=== PATIENT | male | born 1975 | race African-American/Black ===

== ENCOUNTER 2025-09-28 12:26 | Emergency (ER) | payer MEDICAID ==
[~2025-09-28] VITALS: Ht 172.7 cm; Wt 65.0 kg
[2025-09-28 12:41] VITALS: TEMP 98.1
[2025-09-28 13:02] LABS: Nucleated Red Blood Cells % 0.2 %
[2025-09-28 13:04] LABS: Hematocrit 49.1 % (41.0-53.0); Hemoglobin 16.3 g/dL (13.5-17.5); Mean Corpuscular Hemoglobin 26.2 pg (28.0-32.0); Mean Corpuscular Volume 78.7 fL (80.0-100.0)
[2025-09-28 13:12] LABS: Potassium 4.2 mmol/L (3.5-5.1)
[2025-09-28 13:13] LABS: Calcium 9.6 mg/dL (8.7-10.4); Carbon Dioxide 23 mmol/L (20-31); Sodium 136 mmol/L (136-145)
[2025-09-28 13:18] LABS: BUN/Creatinine Ratio 10.8 (10.0-20.0); Glucose 80 mg/dL (74-106)
[2025-09-28 13:19] LABS: Blood Urea Nitrogen 9 mg/dL (9-23)
--- NOTE | 2025-09-28 13:21 | ED.PDOC ---
HPI (NEURO) HPI Comments 50y M who presents to the ED via EMS for chief complaint of dizziness. Pt states earlier this AM, he was getting to car and states he felt dizziness, weakness and states he was going to pass out. Pt states he was able to go back inside his home and states he started to have episodes of cough with associated productive thick mucus with associated nausea with associated vomiting episodes and called EMS. EMS arrived on scene and pt otherwise had stable vitals. Pt in the ED, states he does have sick contacts at home. Pt in the ED, denies shortness of breath, chest pain or any other symptoms. Pt in the ED, otherwise has stable vitals. Chief Complaint: Dizziness Time Seen by MD: 13:18 Reviewed Notes: Nurses Notes, Medications, Allergies Information Source: Patient, Emergency Med Personnel Mode of Arrival: EMS Brought in by: EMS Severity: Moderate Dizziness/Weakness Severity: Does not affect activitie Headache Severity: None Timing: Hours Duration: Since onset Prehospital treatment: None Onset: At rest Circumstances: Spontaneous Symptoms: Near syncope, Weakness History of: MO Modifying factors: Nothing Associated Signs and Symptoms: Nausea, Vomiting, Nasal Congestion Past Medical History PAST MEDICAL HISTORY: MO Past Medical History (Other): blood clot in groin Surgical History: Denies all surgeries Family History Family History: Reviewed,noncontributory to illness Social History Smoker: Non-Smoker Alcohol: Occasionally Drugs: Marijuana Lives In: Home Constitutional: reports: weakness; denies: chills, diaphoresis, fatigue, fever, malaise, sweats, others EENTM: reports: nose congestion; denies: blurred vision, double vision, ear bleeding, ear discharge, ear drainage, ear pain, ear ringing, eye pain, eye redness, hearing loss, mouth pain, mouth swelling, nasal discharge, nose bleeding, nose pain, photophobia, tearing, throat pain, throat swelling, voice changes, others Respiratory: denies: cough, hemoptysis, orthopnea, SOB at rest, shortness of breath, SOB with excertion, stridor, wheezing, others Cardiovascular: denies: chest pain, dizzy spells, diaphoresis, Dyspnea on exertion, edema, irregular heart beat, left arm pain, lightheadedness, palpitations, PND, syncope, others Gastrointestinal: reports: nausea, vomiting; denies: abdomen distended, abdominal pain, blood streaked bowels, constipated, diarrhea, dysphagia, difficulty swallowing, hematemesis, melena, poor appetite, poor fluid intake, rectal bleeding, rectal pain, others Genitourinary: denies: burning, dysuria, flank pain, frequency, hematuria, incontinence, penile discharge, penile sore, pain, testicle pain, testicle swelling, urgency, others Neurological: denies: dizziness, fainting, headache, left sided numbness, left sided weakness, numbness, paresthesia, pre-existing deficit, right sided numbness, right sided weakness, seizure, speech problems, tingling, tremors, weakness, others Musculoskeletal: denies: back pain, gout, joint pain, joint swelling, muscle pain, muscle stiffness, neck pain, others Integumetry: denies: bruises, change in color, change in hair/nails, dryness, laceration, lesions, lumps, rash, wounds, others Allergic/Immunocompromised: denies: Difficulty Healing, Frequent Infections, Hives, Itching, others Hematologic/Lymphatic: denies: anemia, blood clots, easy bleeding, easy bruising, swollen glands, others Endocrine: denies: excessive hunger, excessive sweating, excessive thirst, excessive urination, flushing, intolerance to cold, intolerance to heat, unexplained weight gain, unexplained weight loss, others Psychiatric: denies: anxiety, bipolar disorder, depression, hopeless, panic disorder, schizophrenia, sleepless, suicidal, others All Other Systems: Reviewed and Negative Physical Exam General Appearance: No Apparent Distress HEENT: Normal ENT Inspection, Pharynx Normal, TMs Normal Neck: Full Range of Motion, Non-Tender, Normal, Normal Inspection Respiratory: Chest Non-Tender, Lungs Clear, No Accessory Muscle Use, No Respiratory Distress, Normal Breath Sounds Cardiovascular: No Edema, No JVD, No Murmur, No Gallop, Normal Peripheral Pulses, Regular Rate/Rhythm Breast Exam: Deferred Gastrointestinal: No Organomegaly, Non Tender, No Pulsatile Mass, Normal Bowel Sounds, Soft Genitalia: Deferred Pelvic: Deferred Rectal: Deferred Extremities: No calf tenderness, Normal capillary refill, Normal inspection, Normal range of motion, Non-tender, No pedal edema Musculoskeletal : Apperance: Normal Neurologic: Alert, nitroglycerin supervisor II-XII nml as Tested, No Motor Deficits, Normal Affect, Normal Mood, No Sensory Deficits Cerebellar Function: Normal Reflexes: Normal Skin: Dry, Normal Color, Warm Lymphatic: No Adenopathy EKG EKG : Pulse Rate (adult): 84 [place]: Normal Cardiac Rhythm: NSR Block: None Hypertrophy: None ST: Normal Was a procedure done? Was a procedure done?: No Differential Diagnosis (SZ) Seizure: N/A General Weakness: Anemia, Dehydration, Electrolyte imbalance, Other (UTI, COVID, Influenza A and B, URI, viral syndrome ) X-Ray, Labs, Meds, VS Vital Signs Date Time Temp Pulse Resp B/P (MAP) Pulse Ox O2 Delivery O2 Flow Rate FiO2 09/28/25 15:42 91 17 159/99 (119) 99 09/28/25 15:42 91 17 99 Room Air 09/28/25 13:21 84 09/28/25 12:41 98.1 97 16 152/97 99 98.1 09/28/25 12:32 84 Lab Test 09/28/25 15:41 09/28/25 12:48 Range/Units Urine Color Light-yellow Yellow Urine Clarity Clear Clear Urine pH 5.5 5.0-9.0 Urine Specific [place] 1.022 1.001-1.035 Urine Protein Negative Negative Urine Ketones 2+ H Negative Urine Blood Negative Negative /uL Urine Nitrite Negative Negative Urine Bilirubin Negative Negative Urine Urobilinogen Normal Negative mg/dL Urine Leukocyte Esterase Negative Negative /uL Urine RBC <1 0 - 3 /hpf Urine Microscopic WBC < 1 0-3 /HPF Urine Squamous Epithelial Cells None seen <5 /hpf Urine Bacteria None seen None Seen /hpf Urine Hyaline Casts Few 0 - 2 /lpf Urine Mucus Few None Seen Urine Glucose Normal Normal mg/dL White Blood Count 7.9 4.4-10.8 10^3/uL Red Blood Count 6.24 H 4.5-5.90 10^6/uL Hemoglobin 16.3 13.5-17.5 g/dL Hematocrit 49.1 41.0-53.0 % Mean Corpuscular Volume 78.7 L 80.0-100.0 fL Mean Corpuscular Hemoglobin 26.2 L 28.0-32.0 pg Mean Corpuscular Hemoglobin Concent 33.3 32.0-36.0 g/dL Red Cell Distribution Width 16.2 H 11.8-14.3 % Platelet Count 333 140-450 10^3/uL Mean Platelet Volume 7.1 6.9-10.8 fL Neutrophils (%) (Auto) 61.0 37.0-80.0 % Lymphocytes (%) (Auto) 25.2 10.0-50.0 % Monocytes (%) (Auto) 11.3 0.0-12.0 % Eosinophils (%) (Auto) 0.9 0.0-7.0 % Basophils (%) (Auto) 1.6 0.0-2.0 % Neutrophils # (Auto) 4.8 1.6-8.6 10 ^3/uL Lymphocytes # (Auto) 2.0 0.4-5.4 10 ^3/uL Monocytes # (Auto) 0.9 0-1.3 10 ^3/uL Eosinophils # (Auto) 0.1 0-0.8 10 ^3/uL Basophils # (Auto) 0.1 0-0.2 10 ^3/uL Nucleated Red Blood Cells 0.2 % Sodium Level 136 136-145 mmol/L Potassium Level 4.2 3.5-5.1 mmol/L Chloride Level 105 98-107 mmol/L Carbon Dioxide Level 23 20-31 mmol/L Anion Gap 8 5-15 Blood Urea Nitrogen 9 9-23 mg/dL Creatinine 0.83 0.700-1.30 mg/dL Glomerular Filtration Rate Calc 107 >90 mL/min BUN/Creatinine Ratio 10.8 10.0-20.0 Serum Glucose 80 74-106 mg/dL Calcium Level 9.6 8.7-10.4 mg/dL PROCEDURE(s): HWOCT - HEAD WITHOUT CONTRAST IMPRESSION: 1. No acute intracranial process. 2. Mild bilateral maxillary sinus disease. 3. Fluid and sclerosis of the right mastoid air cells is suggestive of chronic mastoiditis. The patient's CBC is within normal limits The chemistry panel is within normal limits The urine test is negative for any infection The patient is being discharged The patient is able to ambulate without any difficulty The patient will follow up with the primary care doctor Images Reviewed?: Images reviewed and evaluated by me Time of 1ST Reevaluation: 13:50 Reevaluation 1ST: Unchanged Patient Education/Counseling: Diagnosis, Treatment, Prognosis Family Education/Counseling: No Family Present Departure 1 Departure Time of Disposition: 16:25 Impression: Primary Impression: Dizziness Additional Impression: Viral syndrome Disposition: 01 HOME / SELF CARE / HOMELESS Condition: Fair Discharged With: Self Critical Care Note Critical Care Time?: No Stability Stability form required: No Heart Score Heart Score: Heart Score Response (Comments) Value History N/A 0 EKG N/A 0 Age N/A 0 Risk Factors N/A 0 Troponin N/A 0 Total 0 I personally scribed for ELYSE LINDSAY MD ([email or web address]) on 09/28/25 at 13:21. Electronically submitted by Yana Franco ([email or web address]). I personally scribed for ELYSE LINDSAY MD ([email or web address]) on 09/28/25 at 14:18. Electronically submitted by Yana Franco ([email or web address]). ELYSE LINDSAY MD Sep 28, 2025 13:21
--- NOTE | 2025-09-28 13:46 | DVH ---
EXAM: CT HEAD WITHOUT CONTRAST HISTORY: near syncope COMPARISON: None TECHNIQUE: Noncontrast axial CT images of the head were performed. Sagittal and coronal reformatted images were obtained. This CT exam was performed using 1 or more of the following dose reduction techniques: Automated exposure control, adjustment of the mA and/or kv according to patient size, or the use of iterative reconstruction techniques. Radiation Dose: CTDI volume is 55.75 mGy. Dose-length product is 1.71 mGy*cm FINDINGS: No intracranial hemorrhage, mass, midline shift, hydrocephalus, or evidence of acute large vessel infarct. There is a small cavum septum pellucidum. There is mild mucosal thickening in the bilateral maxillary sinuses. There is lucency about the roots of multiple teeth, Although the teeth are not fully imaged here. There is fluid and sclerosis in the caudal aspect of the right mastoid air cells. The left mastoid air cells and bilateral middle ear spaces are clear. No cranial fracture or scalp edema. IMPRESSION: 1. No acute intracranial process. 2. Mild bilateral maxillary sinus disease. 3. Fluid and sclerosis of the right mastoid air cells is suggestive of chronic mastoiditis.
[2025-09-28 13:52] LABS: Anion Gap 8 (5-15); Chloride 105 mmol/L (98-107)
[2025-09-28 15:42] VITALS: BP 159/99; PULSE 91; RESP 17; O2SAT 99
--- NOTE | 2025-09-28 15:54 | ECG ---
[facility] Test Date: 2025-09-28 Test Time: 12:32:02 Pat Name: ROSA MARIA DAWSON Department: ED Room: Gender: M [employer]: : 1975 Requested By: ELYSE LINDSAY Order Number: [id number] Reading MD: Fidel Laguna Measurements Intervals [place] Rate: 84 P: 70 SD: 150 QRS: 69 QRSD: 90 T: 42 QT: 354 QTc: 419 Interpretive Statements Sinus rhythm Electronically Signed On 09-28-2025 20:12:42 PST by Fidel Laguna Please click the below link to view image of tracing.
[2025-09-28 16:16] LABS: Urine Protein, UAD Negative (Negative)
[2025-09-28 18:23] LABS: COVID19 ANTIGEN SOFIA FIA NEGATIVE (NEGATIVE)
== END 2025-09-28 17:07 | disposition home or self-care (01) ==
LOC: EDBD 12:26 → ER 12:26
DX: R42 Dizziness and giddiness (principal); B34.9 Viral infection, unspecified; Z79.899 Other long term (current) drug therapy; Z20.822 Contact with and (suspected) exposure to COVID-19
CPT/HCPCS: 36415; 70450; 80048; 81001; 85025; 87426; 93005